=== PATIENT | female | born 1970 | race Two or more races ===

== ENCOUNTER 2018-06-25 05:50 | Day surgery (SDC) | payer OTHER | END 2018-06-25 09:35 | disposition home or self-care (01) | LOC: AMB-ENDOS 05:50 | DX: K57.30 Diverticulosis of large intestine without perforation or abscess without bleeding (principal) ==

== ENCOUNTER 2018-07-18 06:00 | Day surgery (SDC) | payer OTHER ==
[~2018-07-18] VITALS: Ht 162.6 cm; Wt 59.0 kg
== END 2018-07-19 08:00 | disposition home or self-care (01) ==
LOC: CIR.AMB 06:00 → O/R 06:00 → SURH 06:00 → EDSTATUS 07:00 → SURH 07:00 → O/R 13:52 → OB/GYN 13:52 → CIR.AMB 07-19 08:00 → OB/GYN 07-19 12:49 → O/R 07-19 12:49
DX: N85.01 Benign endometrial hyperplasia (principal); K56.51 Intestinal adhesions [bands], with partial obstruction; N93.8 Other specified abnormal uterine and vaginal bleeding; D25.2 Subserosal leiomyoma of uterus; N73.6 Female pelvic peritoneal adhesions (postinfective); N32.89 Other specified disorders of bladder; D25.1 Intramural leiomyoma of uterus; K57.30 Diverticulosis of large intestine without perforation or abscess without bleeding